=== PATIENT | female | born 1940 | race Caucasian/White ===

== ENCOUNTER → 2016-07-29 | Outpatient (CLI) | payer MEDICARE ==
[~2016-07-29] MED LIST: AML5T PO; ASCO10006 PO; ASCO500T20 PO; ASPI-586 PO; ASPI325T4 PO; ATN50T PO; BENA1TAB14 PO; BENA40TA5 PO; CALC600T PO; CYAN100T PO; CYCL10TA45 PO; DILT-23 PO; DULO60CA58 PO; FERR-74 PO; FOLI0.4T2 PO; HYDR-3811 PO; LORA10TA76 PO; LUTE6TAB PO; MELO-255 PO; MMT17NA; MULT-351 PO; NIAC50TA4 PO; OMEP20CA12 PO; OMEPR; OMG1KC PO; POTA20TA12 PO; PYRI25TA3 PO; RALO60TA PO; RAMI10CA PO; SENN-36 PO; WARF5TAB PO; ZOLP5TAB PO; [UNRECOGNIZED DRUG - CODE] PO; [UNRECOGNIZED DRUG - OTHER]; evista PO
[2016-07-29 15:06] LABS: BASOPHILS % (AUTO) 1 % (0-2); EOSINOPHILS # (AUTO) 0.4 10^3uL; EOSINOPHILS % (AUTO) 6 % (0-4); LYMPHOCYTES # (AUTO) 1.9 X10^3; MEAN CORPUSCULAR HEMOGLOBIN 29.5 PG (26.0-34.0); MEAN CORPUSCULAR HGB CONC 32.2 g/dL (31.0-37.0); MEAN CORPUSCULAR VOLUME 92 FL (80-100); MEAN PLATELET VOLUME 8.7 FL (6.0-9.5); MONOCYTES # (AUTO) 0.8 X10^3; MONOCYTES % (AUTO) 11 % (3-11); NEUTROPHILS # (AUTO) 4.4 X10^3; NEUTROPHILS % (AUTO) 57 % (51-67); PLATELET COUNT 389 10^3uL (150-450)
[2016-07-29 15:17] LABS: ALBUMIN 3.7 g/dL (3.4-5.0); ANION GAP 12.9 MEQ/L (3-15); CALCULATED IONIZED CALCIUM 4.2 mg/dL (3.8-4.6); TOTAL PROTEIN 6.4 g/dL (6.4-8.5)
== END ==
LOC: LAB 14:55
PROVIDERS: ATTEND Nurse Practitioner
DX: C50.919 Malignant neoplasm of unspecified site of unspecified female breast (principal)
CPT/HCPCS: 36415; 80053; 82378; 83615; 85025; 86300

== ENCOUNTER → 2016-08-26 | Outpatient (CLI) | payer MEDICARE ==
--- NOTE | 2016-08-26 15:49 | Diagnostic Imaging Report ---
DIG JIMENA BILAT SCREEN W CAD COMPARISON: 07/02/15, 06/18/2014 and 04/28/13. INDICATION: Screening mammography. TECHNIQUE: Digital screening mammography was obtained with a computer-aided detection (CAD) system. FINDINGS: There are scattered fibroglandular densities. Stable postoperative changes of lumpectomy in the medial left breast. Dystrophic calcifications and architectural distortion within the lumpectomy site are also similar. No new dominant mass, suspicious microcalcifications or architectural distortion to suggest malignancy on either side. IMPRESSION: Stable mammogram without evidence of malignancy. Followup screening mammogram in 12 months is recommended. ACR BI-RADS Category 2: Benign findings. Result letter will be mailed to the patient. Note: At least 10% of breast cancer is not imaged by mammography. Dictated by: Dictated on workstation # [id number]
== END ==
LOC: RAD 13:44
PROVIDERS: ATTEND Internal Medicine Hematology & Oncology
DX: Z12.31 Encounter for screening mammogram for malignant neoplasm of breast (principal)